=== PATIENT | male | born 1955 | race African-American/Black ===

== ENCOUNTER 2023-01-06 01:03 | Emergency (ER) | payer OTHER ==
[~2023-01-06] VITALS: Ht 177.8 cm; Wt 108.9 kg
[2023-01-06] MEDS ORDERED: HYDRALAZINE 20MG/ML VIAL ONE (02:44)
[2023-01-06] MEDS ORDERED: NITROGLYCERIN 30 GM TUBE TD ONE ×2 (03:00)
[2023-01-06] MEDS ORDERED: HYDROCODONE/ACETAMINOPHEN 5/325 MG TAB PO ONE (03:00)
[2023-01-06] MEDS ORDERED: HYDRALAZINE HCL 10 MG TABLET PO SCH (03:00)
[2023-01-06] MEDS ORDERED: HYDR-3420 PO (03:37)
[2023-01-06 03:38] VITALS: BP 142/80; PULSE 64; RESP 18; O2SAT 98
== END 2023-01-06 04:31 | disposition home or self-care (01) ==
LOC: EDH 01:03
DX: I10 Essential (primary) hypertension (principal); G44.209 Tension-type headache, unspecified, not intractable
CPT/HCPCS: 99284; J0360